=== PATIENT | male | born 1970 | race Caucasian/White ===

== ENCOUNTER 2019-11-12 12:30 | Emergency (ER) | payer MEDICAID ==
[~2019-11-12] VITALS: Ht 162.6 cm; Wt 64.0 kg
[2019-11-12 12:40] VITALS: Ht 162.6 cm; Wt 64.0 kg
[2019-11-12 13:16] VITALS: BP 123/84
== END 2019-11-12 13:16 | disposition home or self-care (01) ==
LOC: ED 12:30
DX: H72.92 Unspecified perforation of tympanic membrane, left ear (principal)